=== PATIENT | male | born 1945 | race Caucasian/White ===

== ENCOUNTER 2017-03-04 21:20 | Observation (INO) | payer MEDICARE, OTHER ==
[2017-03-04] MEDS ORDERED: methylPREDNISolone Sod Succ/PF 125 MG/2 ML VIAL ONE (21:46)
[2017-03-04] MEDS ORDERED: Famotidine/PF 20 mg/2ml Vial ONE (21:46)
[2017-03-04] MEDS ORDERED: Acetaminophen 325 MG TAB PO PRN (23:11)
--- NOTE | 2017-03-04 23:52 | HP ---
PRIMARY CARE PHYSICIAN: Samuel Elaine MD CHIEF COMPLAINT: Tongue swelling. HISTORY OF PRESENT ILLNESS: Mr. Hoyt is a pleasant 71-year-old gentleman who was seen at [facility] on 03/04/2017. He has been taking lisinopril for at least 9 or 10 years. He also started taking Sudafed over the la st 3 days for recent sinus congestion. Today evening, he developed swelling of the tongue. His spee ch became muffled. He denies any shortness of breath. He denies any wheezing. He denies any chest pain. He went to [facility] emergency room. There, he was diagnosed with angioedema. He r eceived Solu-Medrol and Benadryl, and was transferred to this emergency room. At this emergency room , he received Solu-Medrol and famotidine. He reports feeling better. REVIEW OF SYSTEM: The following complete review of systems was negative, unless otherwise mentioned in the HPI or below: Constitutional: Weight loss or gain, sense of well-being, ability to conduct u sual activities, exercise tolerance. Skin/Breast: Rash, itching, changes in hair growth or loss, na il changes, breast lumps, tenderness, swelling, nipple discharge. Eyes: Vision, double vision, tear ing, blind spots, pain. ENT/Mouth: Headaches (location, time of onset, duration, precipitating fact ors), vertigo, lightheadedness, injury. Vision, double vision, tearing, blind spots, pain, nose blee ding, colds, obstruction, discharge, dental difficulties, gingival bleeding, dentures, neck stiffness , pain, tenderness, masses in thyroid or other areas. Cardiovascular: Precordial pain, substernal d istress, palpitations, syncope, dyspnea on exertion, orthopnea, nocturnal paroxysmal dyspnea, edema, cyanosis, hypertension, heart murmurs, varicosities, phlebitis, claudication. Respiratory: Pain, sh ortness of breath, wheezing, stridor, cough, hemoptysis, fever or night sweats. Gastrointestinal: P oor appetite, dysphagia, indigestion, abdominal pain, heartburn, eructation, nausea, vomiting, hemate mesis, jaundice, constipation, or diarrhea, abnormal stools (noa-colored, tarry, bloody, greasy, fou l smelling), flatulence, hemorrhoids, recent changes in bowel habits. Genitourinary: Urgency, frequ ency, dysuria, nocturia, hematuria, polyuria, oliguria, unusual (or change in) color of urine, stones , hesitancy, change in size of stream, dribbling, acute retention or incontinence, libido, potency. Musculoskeletal: Pain, swelling, redness or heat of muscles or joints, limitation of motion, muscula r weakness, atrophy, cramps. Neurologic/Psychiatric: Convulsions, paralyses, tremor, incoordination , parasthesias, difficulties with memory of speech, sensory or motor disturbances, or muscular coordi nation (ataxia, tremor), emotional problems, anxiety, depression, previous psychiatric care, unusual perceptions, hallucinations. Allergy/Immunologic: Skin rash, anemia, bleeding tendency, polydipsia, polyuria, intolerance to heat or cold. PAST MEDICAL HISTORY: Significant for dyslipidemia and hypertension. PAST SURGICAL HISTORY: Left great toe surgery. FAMILY HISTORY: No family history of premature coronary artery disease. SOCIAL HISTORY: The patient drinks one beer a day. He denies recreational drug use. He smokes 2 pa cks of cigarettes a day. ALLERGIES: PENICILLIN AND TETANUS IMMUNE GLOBULIN. CURRENT MEDICATIONS: Lisinopril 10 mg daily. PHYSICAL EXAMINATION: GENERAL: Mr. Hoyt is awake and alert, not in acute distress. VITAL SIGNS: Blood pressure is 141/81, pulse is 69, he is breathing at rate of 18, and saturating 97 % on room air. He is afebrile. EYES: No scleral icterus. No conjunctival pallor. ENT: He has tongue swelling. Base of the tongue is swollen as well. Airway is patent. NECK: Supple, nontender, trachea midline. RESPIRATORY: Accessory muscles of breathing are not active. Chest wall movements are symmetric bila terally. LUNGS: Clear to auscultation without wheeze, rhonchi, or crepitations. CARDIOVASCULAR: S1 and S2 are heard, regular. Peripheral pulses palpable. No carotid bruit, no per icardial rub. ABDOMEN: Soft, nontender, bowel sounds heard, no hepatomegaly, no splenomegaly. NEUROLOGIC: Cranial nerves II through XII are intact. Deep tendon reflexes are 2+. MUSCULOSKELETAL: Power is 5/5 in all 4 extremities. Normal range of movement at all major extremity joints. LYMPHATIC: No cervical lymphadenopathy. SKIN: No rashes or subcutaneous nodules. PSYCHIATRIC: Normal mood, normal affect, patient is oriented to person, place, and time. LABORATORY DATA: Mr. Hoyt's and investigations were reviewed. He had a 12-lead electrocardiogram , which showed normal sinus rhythm, no ST changes to suggest an acute coronary syndrome. Blood work done at [facility] the emergency room showed normal white count, elevated hemoglobin of 17, normal platelet count, normal electrolytes, normal creatinine and normal liver profile. ASSESSMENT AND PLAN: Mr. Hoyt is a pleasant 71-year-old gentleman who was seen at [facility] on 03/07/2017. His problem list includes: 1. Angioedema: Mr. Hoyt is presenting with angioedema. It is most likely from JOSE inhibitor. A CE inhibitor will be stopped. The patient has been advised not to use JOSE inhibitor or Sudafed in th e future. We will admit him to the hospital for observation. We will continue steroids, H1 and H2 b lockers. He is currently improving. If there is any worsening, we will move him to the critical car e unit. 2. Hypertension: Monitor vital signs, titrate antihypertensives as needed. 3. Tobacco use: The patient has been counseled regarding tobacco cessation. Many thanks for allowing me to participate in your patient's care. Please feel free to contact me wi th any questions or concerns. LEVEL OF RISK: Moderate. LEVEL OF COMPLEXITY: Moderate.
[2017-03-05 04:19] VITALS: BMI 33.1
[2017-03-05] MEDS: diphenhydrAMINE 50 MG/ML VIAL IVP SCH ×3 (04:26→11:37)
[2017-03-05] MEDS: Famotidine/PF 20 mg/2ml Vial SLOW IVP SCH ×3 (04:26→11:37)
[2017-03-05 05:50] LABS: #Basophils 0.2 thou/uL (0.0-0.2); #Lymphocytes 0.5 thou/uL (1.20-3.40); #Monocytes 0.2 thou/uL (0.11-0.59); #Neutrophils 10.6 thou/uL (1.40-6.50); %Eosinophils 0.1 % (0.0-10.0); %Lymphocytes 3.9 % (21.0-51.0); %Monocytes 1.6 % (0.0-10.0); Hematocrit 50.6 % (42.0-52.0); Mean Platelet Volume 6.5 fL (7.4-10.4); White Blood Cell (WBC) Count 11.5 thou/uL (4.8-10.8)
[2017-03-05 06:22] LABS: Anion Gap 12 mmol/L (10-20); BUN (Urea Nitrogen) 11 mg/dL (8.4-25.7); Calc. Creatinine Clearance 130 mL/min (70-130); Calcium 9.3 mg/dL (7.8-10.44); Carbon Dioxide 25 mmol/L (23-31); Chloride 102 mmol/L (98-107); Estimated GFR-MDRD Greater than 90
[2017-03-05] MEDS ORDERED: Sterile Water 10 ML ONE (11:30)
[2017-03-05 12:02] VITALS: BP 186/88; TEMP 97.3
--- NOTE | 2017-03-05 13:54 | DIS ---
DATE OF ADMISSION: 03/04/2017 DATE OF DISCHARGE: 03/05/2017 DISCHARGE DISPOSITION: Home. PRIMARY DISCHARGE DIAGNOSES: Angioedema, likely due to lisinopril versus Sudafed. SECONDARY DISCHARGE DIAGNOSES: Hypertension, dyslipidemia. PROCEDURES DONE DURING HOSPITALIZATION: H&H 16 and 50, platelet count 320, BUN 11, creatinine 0.8. DISCHARGE MEDICATIONS: Norvasc 10 mg p.o. daily, hydrochlorothiazide 12.5 mg p.o. daily, prednisone 10 mg twice daily, tapering dose over the course of 1 week, Pepcid 20 mg twice daily for 6 days, Franchesca dryl twice daily for 4 days. ALLERGIES: LISINOPRIL and PSEUDOEPHEDRINE. DISCHARGE PLAN: The patient to follow up with primary care physician in 1 week. BRIEF COURSE DURING HOSPITALIZATION: The patient initially came in with complaints of swelling of hi s tongue and speech becoming more muffled. He was also on lisinopril. In view of this, he was place d under observation for angioedema secondary to JOSE inhibitors versus Sudafed which he took for his s inus symptoms. He was on IV steroids along with Benadryl and Pepcid. He has done remarkably well du ring his brief stay here. He is eating well and his tongue swelling has completely resolved. He was placed on Norvasc and hydrochlorothiazide to be taken daily. The patient has been advised to check blood pressures daily and on record for a period of 10 days to follow up with primary care physician. He is otherwise hemodynamically stable and will be shortly discharged home. [facility].
--- NOTE | 2017-03-05 14:13 | PDOC.PN ---
- Subjective Encounter Start Date: 03/05/17 Encounter Start Time: 07:00 Subjective: feels better, tongue swelling is gone -: is able to eat -: has hoarness and pt says its due to post nasal drip from few days - Objective Resuscitation Status: Resuscitation Status FULL:Full Resuscitation MAR Reviewed: Yes Vital Signs & Weight: Vital Signs (12 hours) Temp Pulse Resp BP BP Pulse Ox 03/05/17 11:34 97.3 F L 74 20 186/88 H 95 03/05/17 08:40 61 20 132/67 98 03/05/17 08:00 97.3 F L 74 20 03/05/17 07:34 97.8 F 67 20 159/81 H 95 03/05/17 04:23 97.5 F L 61 20 03/05/17 02:40 97.5 F L 61 20 127/59 L 94 L Weight Weight 237 lb 14.4 oz I&O: 03/04/17 03/05/17 03/06/17 06:59 06:59 06:59 Intake Total 110 Balance 110 Result Diagrams: 03/05/17 05:14 03/05/17 05:14 Phys Exam - Physical Examination HEENT: PERRLA, moist MMs Neck: no JVD, supple Respiratory: no wheezing, no rales Cardiovascular: RRR, no significant murmur Gastrointestinal: soft, non-tender, positive bowel sounds Musculoskeletal: no edema, pulses present Neurological: non-focal, moves all 4 limbs Psychiatric: A&O x 3 Dx/Plan (1) Angioedema Code(s): T78.3XXA - ANGIONEUROTIC EDEMA, INITIAL ENCOUNTER Status: Acute Comment: resolving (2) HTN (hypertension) Code(s): I10 - ESSENTIAL (PRIMARY) HYPERTENSION Status: Chronic Qualifiers: Hypertension type: essential hypertension Qualified Code(s): I10 - Essential (primary) hypertension (3) Obesity (BMI 30.0-34.9) Code(s): E66.9 - OBESITY, UNSPECIFIED Status: Chronic - Plan hemostable -: dc pt home -: will add norvasc and hctz for htn * .
--- NOTE | 2017-03-13 10:00 | EKG ---
Test Reason : Blood Pressure : / mmHG Vent. Rate : 071 BPM Atrial Rate : 071 BPM P-R Int : 180 ms QRS Dur : 090 ms QT Int : 378 ms P-R-T Axes : 049 005 046 degrees QTc Int : 410 ms Normal sinus rhythm Normal ECG Confirmed by YESSENIA IGLESIAS, GHULAM Burger ([id number]), marketing editor ABNER CASANOVA ([id number]) on 03/13/2017 10:00:14 AM Referred By: Confirmed By:GHULAM CASAS MD
== END 2017-03-05 14:05 | disposition home or self-care (01) ==
LOC: ERS 21:20 → 2SW 23:16
PROVIDERS: ADMIT Internal Medicine; ATTEND Internal Medicine
DX: T78.3XXA Angioneurotic edema, initial encounter (principal); I10 Essential (primary) hypertension; E78.5 Hyperlipidemia, unspecified; F17.210 Nicotine dependence, cigarettes, uncomplicated; Z88.8 Allergy status to other drugs, medicaments and biological substances; Z88.0 Allergy status to penicillin; Z88.7 Allergy status to serum and vaccine; Z79.899 Other long term (current) drug therapy; Z98.890 Other specified postprocedural states
CPT/HCPCS: 80048; 85025; 93005; 96374; 96375 ×2; 96376; 99285; 99406; G0378; 36415; A4216; J1200; J2920; J2930; S0028

== ENCOUNTER 2017-06-12 07:35 | Inpatient (IN) | payer MEDICARE ==
[2017-06-12] MEDS ORDERED: Water For Inject, Bacteriostat 30 ML ONE (07:54)
[2017-06-12] MEDS ORDERED: Famotidine/PF 20 mg/2ml Vial ONE (07:54)
[2017-06-12] MEDS ORDERED: EPINEPHrine 1 MG/ML AMP ONE (07:54)
[2017-06-12] MEDS ORDERED: methylPREDNISolone Sod Succ/PF 125 MG/2 ML VIAL ONE (07:54)
[2017-06-12] MEDS ORDERED: diphenhydrAMINE 50 MG/ML VIAL ONE (07:54)
--- NOTE | 2017-06-12 19:15 | PDOC.EVN ---
Event Note - Event Note Event Note: RN called - Patient was discharged earlier by Dr Tilley. Scripts of Prednisone were sent to the pharmacy - Pharmacy however is closed. Plan: New script sent to [facility].
== END 2017-06-12 19:25 | disposition home or self-care (01) | DRG 916 ==
LOC: ERS 07:35 → ERHOLD 10:55
PROVIDERS: ADMIT Internal Medicine; ATTEND Internal Medicine
DX: Z88.0 Allergy status to penicillin; F17.210 Nicotine dependence, cigarettes, uncomplicated; Z88.7 Allergy status to serum and vaccine; I10 Essential (primary) hypertension; Z79.899 Other long term (current) drug therapy; T78.3XXA Angioneurotic edema, initial encounter; T36.3X5A Adverse effect of macrolides, initial encounter; Z88.8 Allergy status to other drugs, medicaments and biological substances
CPT/HCPCS: 96372; 96374; 96375; J0171; J1200; J2930; S0028

== ENCOUNTER 2023-09-29 10:45 | Inpatient (IN) | payer MEDICARE, OTHER ==
[2023-09-29] MEDS ORDERED: Acetaminophen 500 MG TAB ONE (11:24)
[2023-09-29 11:37] LABS: #Basophils 0.04 10x3/uL (0.0-0.2); %Basophils 0.3 % (0.0-1.0); %Eosinophils 1.5 % (0.0-10.0); %Monocytes 10.3 % (0.0-10.0); %Neutrophils 82.5 % (42.0-75.0); Hemoglobin 13.1 g/dL (14.0-18.0); Mean Corpuscular HGB CONC 33.6 g/dL (32.0-36.0); Mean Corpuscular Hemoglobin 30.7 pg (27.0-31.0); Mean Corpuscular Volume 91.3 fL (78.0-98.0); Mean Platelet Volume 8.8 fL (7.4-10.4); Platelet Count 336 10x3/uL (130-400); RBC Distribution Width 13.2 % (11.5-14.5); Red Blood Cell (RBC) Count 4.27 mill/uL (4.70-6.10)
[2023-09-29 12:44] LABS: ALT (SGPT) 12 U/L (8-55); AST (SGOT) 22 U/L (5-34); Alkaline Phosphatase 101 U/L (40-110); Anion Gap 15 mmol/L (10-20); BUN (Urea Nitrogen) 13 mg/dL (8.4-25.7); Calc. Creatinine Clearance 0 mL/min (70-130); Calcium 12.1 mg/dL (7.8-10.44); Carbon Dioxide 30 mmol/L (23-31); Chloride 96 mmol/L (98-107); Estimated GFR 93; Glucose 98 mg/dL (83-110); Potassium 3.1 mmol/L (3.5-5.1); Sodium 138 mmol/L (136-145)
[2023-09-29 14:10] LABS: Magnesium 2.2 mg/dL (1.6-2.6)
[2023-09-29 14:21] LABS: Anion Gap 14 mmol/L (10-20); BUN (Urea Nitrogen) 13 mg/dL (8.4-25.7); Calc. Creatinine Clearance 0 mL/min (70-130); Calcium 12.1 mg/dL (7.8-10.44); Carbon Dioxide 29 mmol/L (23-31); Chloride 97 mmol/L (98-107); Estimated GFR 94; Glucose 93 mg/dL (83-110); Potassium 3.3 mmol/L (3.5-5.1); Sodium 137 mmol/L (136-145)
[2023-09-29] MEDS ORDERED: Potassium Chloride 20 MEQ TAB ONE ×2 (15:10→18:41)
[2023-09-29] MEDS ORDERED: Ondansetron PF 4 MG/2 ML Vial IVP PRN (15:37)
[2023-09-29] MEDS ORDERED: Ondansetron ODT 4 MG TAB PO PRN (15:37)
[2023-09-29] MEDS: Polyethylene Glycol 3350 17 GM Packet PO SCH (16:25)
[2023-09-29] MEDS: Sodium Chloride 0.9% 1,000 ML IV SCH (17:09)
[2023-09-29] MEDS: Acetaminophen 325 MG TAB PO SCH (18:06)
[2023-09-29 18:25] LABS: Bacteria/HPF None Seen HPF (None Seen); CAUTI Indications for Culture Alt mental st,lethar; RBC/HPF 0-3 HPF (0-3); Squamous Epithelial None Seen HPF (0-3); WBC/HPF 0-3 HPF (0-3)
[2023-09-29 18:31] LABS: Bilirubin Negative (Negative); Blood, Urine Negative (Negative); Clarity Clear (Clear); Glucose, Urine (Dipstick) Negative (Negative); Ketone, Urine 15 mg/dL (Negative); Leukocyte Negative (Negative); Nitrite Negative (Negative); Protein, Urine (Dipstick) Negative (Neg-Trace); Urobilinogen 0.2 mg/dL (Less than 2); pH, Urine 6.5 (5.0-9.0)
[2023-09-29 18:34] LABS: Urine Culture Reflex No No
[2023-09-29] MEDS ORDERED: Famotidine 20 MG TAB ONE (22:07)
[2023-09-29] MEDS ORDERED: Sodium Chloride 0.9% 100 ML ONE (22:07)
[2023-09-29] MEDS ORDERED: cefTRIAXone (ROCEPHIN) 1 GM VIAL ONE (22:07)
[2023-09-29] MEDS: cefTRIAXone\\ROCEPHIN 1 GM in Sodium Chloride 0.9% 100 ML IVPB SCH (22:13)
[2023-09-29] MEDS: Famotidine 20 MG TAB PO SCH (22:13)
[2023-09-29] MEDS: Docusate 100 MG CAP PO SCH (22:20)
[2023-09-29] MEDS ORDERED: Acetaminophen 325 MG TAB ONE (22:48)
[2023-09-29 23:21] LABS: Potassium 3.3 mmol/L (3.5-5.1)
[2023-09-29 23:36] VITALS: BMI 24.7
[2023-09-30] MEDS: Potassium Chloride 20 MEQ TAB PO SCH ×2 (01:29→09:16)
[2023-09-30] MEDS: metroNIDAZOLE 500 MG in Premix 1 BAG IVPB SCH (01:30)
[2023-09-30 02:39] LABS: Strep pneumo Urine Ag NEGATIVE (NEGATIVE)
[2023-09-30] MEDS ORDERED: Electrolyte Replacement Protocol 1 EACH FS SCH (04:45)
[2023-09-30 06:17] LABS: #Basophils 0.07 10x3/uL (0.0-0.2); %Basophils 0.6 % (0.0-1.0); %Eosinophils 4.3 % (0.0-10.0); %Lymphocytes 8.1 % (21.0-51.0); %Monocytes 12.2 % (0.0-10.0); %Neutrophils 74.4 % (42.0-75.0); Hematocrit 39.3 % (42.0-52.0); Mean Corpuscular HGB CONC 33.1 g/dL (32.0-36.0); Mean Corpuscular Hemoglobin 29.5 pg (27.0-31.0); Mean Corpuscular Volume 89.3 fL (78.0-98.0); Mean Platelet Volume 8.8 fL (7.4-10.4); Platelet Count 312 10x3/uL (130-400); RBC Distribution Width 13.2 % (11.5-14.5)
[2023-09-30 06:36] LABS: ALT (SGPT) 10 U/L (8-55); AST (SGOT) 18 U/L (5-34); Albumin 2.6 g/dL (3.4-4.8); Alkaline Phosphatase 89 U/L (40-110); Anion Gap 13 mmol/L (10-20); BUN (Urea Nitrogen) 12 mg/dL (8.4-25.7); Bilirubin, Total 0.7 mg/dL (0.2-1.2); Calc. Creatinine Clearance 108 mL/min (70-130); Calcium 11.2 mg/dL (7.8-10.44); Carbon Dioxide 28 mmol/L (23-31); Chloride 102 mmol/L (98-107); Estimated GFR 97; Globulin 3.4 g/dL (2.4-3.5); Glucose 78 mg/dL (83-110); Magnesium 2.1 mg/dL (1.6-2.6); Potassium 2.8 mmol/L (3.5-5.1); Sodium 140 mmol/L (136-145)
[2023-09-30] MEDS: Enoxaparin 40 MG (0.4 mL) SYRINGE SC SCH (09:14)
[2023-09-30] MEDS: PHOS-NAK 1 PKT PACK PO SCH (09:15)
[2023-09-30] MEDS: Polyethylene Glycol 3350 17 GM Packet PO SCH (09:15)
[2023-09-30] MEDS: Nicotine 21 MG PATCH TD SCH (09:15)
[2023-09-30] MEDS: Amlodipine 10 MG TAB PO SCH (09:17)
[2023-09-30 11:23] LABS: Reference Lab Name LABCORP
[2023-09-30] MEDS: Sodium Chloride 0.9% 1,000 ML IV SCH (17:56)
[2023-09-30] MEDS: Zoledronic Acid 4 MG in Sodium Chloride 0.9% 100 ML IVPB SCH (17:56)
[2023-10-01 06:35] LABS: #Basophils 0.04 10x3/uL (0.0-0.2); %Basophils 0.4 % (0.0-1.0); %Eosinophils 3.1 % (0.0-10.0); %Lymphocytes 5.7 % (21.0-51.0); %Monocytes 7.9 % (0.0-10.0); %Neutrophils 82.5 % (42.0-75.0); Hemoglobin 13.3 g/dL (14.0-18.0); Mean Corpuscular HGB CONC 33.3 g/dL (32.0-36.0); Mean Corpuscular Hemoglobin 30.5 pg (27.0-31.0); Mean Corpuscular Volume 91.7 fL (78.0-98.0); Mean Platelet Volume 9.3 fL (7.4-10.4); Platelet Count 337 10x3/uL (130-400); RBC Distribution Width 13.2 % (11.5-14.5); Red Blood Cell (RBC) Count 4.36 mill/uL (4.70-6.10)
[2023-10-01 07:32] LABS: Anion Gap 15 mmol/L (10-20); BUN (Urea Nitrogen) 8 mg/dL (8.4-25.7); Calc. Creatinine Clearance 108 mL/min (70-130); Calcium 10.8 mg/dL (7.8-10.44); Carbon Dioxide 28 mmol/L (23-31); Chloride 103 mmol/L (98-107); Estimated GFR 97; Glucose 73 mg/dL (83-110); Potassium 2.6 mmol/L (3.5-5.1); Sodium 143 mmol/L (136-145)
[2023-10-01] MEDS ORDERED: Potassium Chloride 20 MEQ TAB PO SCH (10:00)
[2023-10-01] MEDS ORDERED: Ipratropium/Albuterol 3 ML NEB NEB PRN (15:57)
[2023-10-01 16:18] LABS: Phosphorus 1.9 mg/dL (2.3-4.7)
[2023-10-01 17:01] LABS: Potassium 3.1 mmol/L (3.5-5.1)
[2023-10-01 19:36] LABS: Potassium 3.1 mmol/L (3.5-5.1); Sodium 137 mmol/L (136-145)
[2023-10-01] MEDS: Potassium Chloride 20 MEQ TAB PO SCH ×2 (21:56→22:10)
[2023-10-01] MEDS: PHOS-NAK 1 PKT PACK PO SCH (22:10)
[2023-10-02 04:38] LABS: #Basophils 0.07 10x3/uL (0.0-0.2); %Basophils 0.8 % (0.0-1.0); %Eosinophils 2.4 % (0.0-10.0); %Lymphocytes 7.2 % (21.0-51.0); %Monocytes 8.7 % (0.0-10.0); %Neutrophils 80.6 % (42.0-75.0); Hematocrit 40.8 % (42.0-52.0); Hemoglobin 13.2 g/dL (14.0-18.0); Mean Corpuscular HGB CONC 32.4 g/dL (32.0-36.0); Mean Corpuscular Hemoglobin 28.9 pg (27.0-31.0); Mean Corpuscular Volume 89.5 fL (78.0-98.0); Mean Platelet Volume 9.4 fL (7.4-10.4); Platelet Count 277 10x3/uL (130-400); RBC Distribution Width 13.4 % (11.5-14.5); Red Blood Cell (RBC) Count 4.56 mill/uL (4.70-6.10)
[2023-10-02 04:56] LABS: Anion Gap 10 mmol/L (10-20); BUN (Urea Nitrogen) 10 mg/dL (8.4-25.7); Calc. Creatinine Clearance 106 mL/min (70-130); Calcium 9.6 mg/dL (7.8-10.44); Carbon Dioxide 23 mmol/L (23-31); Chloride 106 mmol/L (98-107); Estimated GFR 96; Glucose 84 mg/dL (83-110); Potassium 3.3 mmol/L (3.5-5.1); Sodium 136 mmol/L (136-145)
[2023-10-02 07:02] LABS: Phosphorus 1.8 mg/dL (2.3-4.7)
[2023-10-02] MEDS ORDERED: Potassium Chloride 20 MEQ TAB PO SCH (07:45)
[2023-10-02] MEDS ORDERED: PHOS-NAK 1 PKT PACK PO SCH (08:00)
[2023-10-02] MEDS: Potassium Phosphate 30 MMOL in Sodium Chloride 0.9% 250 ML 250 ML IVPB SCH (09:46)
[2023-10-02] MEDS: Potassium Chloride 20 MEQ TAB PO SCH (09:47)
[2023-10-02 12:29] LABS: Potassium 3.5 mmol/L (3.5-5.1)
[2023-10-02] MEDS: Senokot S 8.6-50 MG TAB PO SCH ×2 (13:26→21:13)
[2023-10-02] MEDS: traMADol HCl 50 MG TAB PO PRN (21:13)
[2023-10-03 02:12] LABS: QuantiFERON-TB Gold Plus Negative (Negative)
[2023-10-03 05:16] LABS: #Basophils 0.03 10x3/uL (0.0-0.2); %Basophils 0.2 % (0.0-1.0); %Eosinophils 2.5 % (0.0-10.0); %Monocytes 10.3 % (0.0-10.0); %Neutrophils 79.6 % (42.0-75.0); Hematocrit 37.4 % (42.0-52.0); Hemoglobin 12.2 g/dL (14.0-18.0); Mean Corpuscular HGB CONC 32.6 g/dL (32.0-36.0); Mean Corpuscular Hemoglobin 28.9 pg (27.0-31.0); Mean Corpuscular Volume 88.6 fL (78.0-98.0); Mean Platelet Volume 9.3 fL (7.4-10.4); Platelet Count 272 10x3/uL (130-400); RBC Distribution Width 13.7 % (11.5-14.5); Red Blood Cell (RBC) Count 4.22 mill/uL (4.70-6.10)
[2023-10-03 05:31] LABS: Anion Gap 8 mmol/L (10-20); BUN (Urea Nitrogen) 10 mg/dL (8.4-25.7); Calc. Creatinine Clearance 130 mL/min (70-130); Calcium 8.6 mg/dL (7.8-10.44); Carbon Dioxide 24 mmol/L (23-31); Chloride 107 mmol/L (98-107); Estimated GFR 102; Glucose 87 mg/dL (83-110); Potassium 3.1 mmol/L (3.5-5.1); Sodium 136 mmol/L (136-145)
[2023-10-03 05:32] LABS: Phosphorus 1.8 mg/dL (2.3-4.7)
[2023-10-03] MEDS: Magnesium 2 GM/50 ML(in water) 2 GM in Premix 1 BAG IVPB SCH (10:19)
[2023-10-03] MEDS: Aspirin 325 MG TAB PO PRN (10:23)
[2023-10-03] MEDS: Potassium Chloride 20 MEQ TAB PO SCH (10:23)
[2023-10-03] MEDS: PHOS-NAK 1 PKT PACK PO SCH (10:24)
[2023-10-03] MEDS: Potassium Phosphate 30 MMOL in Sodium Chloride 0.9% 250 ML 250 ML IVPB SCH ×2 (10:32→11:21)
[2023-10-03 13:35] LABS: Potassium 3.9 mmol/L (3.5-5.1)
[2023-10-03] MEDS: Milk Of Magnesia 30 ML UDCUP PO SCH ×2 (17:51)
[2023-10-04 04:52] LABS: #Basophils 0.04 10x3/uL (0.0-0.2); %Basophils 0.3 % (0.0-1.0); %Eosinophils 2.3 % (0.0-10.0); %Lymphocytes 8.7 % (21.0-51.0); %Monocytes 12.1 % (0.0-10.0); %Neutrophils 76.2 % (42.0-75.0); Hematocrit 37.3 % (42.0-52.0); Hemoglobin 12.1 g/dL (14.0-18.0); Mean Corpuscular HGB CONC 32.4 g/dL (32.0-36.0); Mean Corpuscular Hemoglobin 30.3 pg (27.0-31.0); Mean Corpuscular Volume 93.3 fL (78.0-98.0); Platelet Count 273 10x3/uL (130-400); RBC Distribution Width 13.7 % (11.5-14.5)
[2023-10-04 05:07] LABS: Phosphorus 1.7 mg/dL (2.3-4.7)
[2023-10-04 05:11] LABS: Anion Gap 12 mmol/L (10-20); BUN (Urea Nitrogen) 9 mg/dL (8.4-25.7); Calc. Creatinine Clearance 135 mL/min (70-130); Calcium 8.1 mg/dL (7.8-10.44); Carbon Dioxide 21 mmol/L (23-31); Chloride 107 mmol/L (98-107); Estimated GFR 103; Glucose 89 mg/dL (83-110); Magnesium 2.3 mg/dL (1.6-2.6); Potassium 3.7 mmol/L (3.5-5.1); Sodium 136 mmol/L (136-145)
[2023-10-04] MEDS: Potassium Phosphate 30 MMOL in Sodium Chloride 0.9% 250 ML 250 ML IVPB SCH (09:34)
[2023-10-04] MEDS: PHOS-NAK 1 PKT PACK PO SCH (09:34)
[2023-10-04] MEDS: Bisacodyl 10 MG SUPP PR SCH (11:36)
[2023-10-04] MEDS: Magnesium Citrate 300 ML BOT PO SCH (11:40)
[2023-10-04] MEDS ORDERED: Glycerin Pediatric Sup. (4ml) PR PRN (12:51)
[2023-10-04] MEDS: Lidocaine 4% Patch TD SCH (13:56)
[2023-10-05] MEDS: Transdermal Patch Removal TOP SCH (00:38)
[2023-10-05 05:29] LABS: #Basophils 0.03 10x3/uL (0.0-0.2); %Basophils 0.2 % (0.0-1.0); %Eosinophils 2.2 % (0.0-10.0); %Monocytes 14.1 % (0.0-10.0); Hematocrit 36.8 % (42.0-52.0); Hemoglobin 12.4 g/dL (14.0-18.0); Mean Corpuscular HGB CONC 33.7 g/dL (32.0-36.0); Mean Corpuscular Hemoglobin 29.6 pg (27.0-31.0); Mean Corpuscular Volume 87.8 fL (78.0-98.0); Mean Platelet Volume 9.3 fL (7.4-10.4); Platelet Count 293 10x3/uL (130-400); RBC Distribution Width 13.6 % (11.5-14.5); Red Blood Cell (RBC) Count 4.19 mill/uL (4.70-6.10)
[2023-10-05 11:19] LABS: Histoplasma Antigen - Urine Negative (<0.2 ng/mL)
[2023-10-05 11:49] VITALS: BMI 24.8
[2023-10-05] MEDS ORDERED: Transdermal Patch Removal TOP PRN (20:31)
[2023-10-05] MEDS: Lidocaine 4% Patch TD PRN (22:34)
[2023-10-06 04:55] LABS: #Basophils 0.03 10x3/uL (0.0-0.2); %Basophils 0.3 % (0.0-1.0); %Eosinophils 2.8 % (0.0-10.0); %Lymphocytes 9.7 % (21.0-51.0); %Monocytes 16.1 % (0.0-10.0); %Neutrophils 70.7 % (42.0-75.0); Hematocrit 37.6 % (42.0-52.0); Hemoglobin 12.5 g/dL (14.0-18.0); Mean Corpuscular HGB CONC 33.2 g/dL (32.0-36.0); Mean Corpuscular Hemoglobin 30.2 pg (27.0-31.0); Mean Corpuscular Volume 90.8 fL (78.0-98.0); Mean Platelet Volume 9.2 fL (7.4-10.4); Platelet Count 302 10x3/uL (130-400); RBC Distribution Width 13.7 % (11.5-14.5); Red Blood Cell (RBC) Count 4.14 mill/uL (4.70-6.10)
[2023-10-06] MEDS: Lidocaine 4% Patch TD SCH (15:33)
[2023-10-06] MEDS: Transdermal Patch Removal TOP SCH (21:16)
[2023-10-07 05:49] LABS: #Basophils 0.06 10x3/uL (0.0-0.2); %Basophils 0.5 % (0.0-1.0); %Eosinophils 3.5 % (0.0-10.0); %Lymphocytes 9.5 % (21.0-51.0); %Monocytes 17.1 % (0.0-10.0); %Neutrophils 68.8 % (42.0-75.0); Hematocrit 39.8 % (42.0-52.0); Mean Corpuscular HGB CONC 32.7 g/dL (32.0-36.0); Mean Corpuscular Hemoglobin 30.4 pg (27.0-31.0); Platelet Count 290 10x3/uL (130-400); RBC Distribution Width 13.7 % (11.5-14.5); Red Blood Cell (RBC) Count 4.28 mill/uL (4.70-6.10)
[2023-10-07 05:55] LABS: INR-International Normal Ratio 1.1; Prothrombin Time 13.7 sec (12.0-14.7)
[2023-10-07 05:56] LABS: PTT 37.4 sec (22.9-36.1)
[2023-10-07] MEDS ORDERED: Lidocaine 1% PF 5 ML VIAL ONE (10:22)
[2023-10-07] MEDS ORDERED: fentaNYL 50 mcg/mL 1 mL Vial ONE (10:23)
[2023-10-07] MEDS ORDERED: Magnevist 469MG/ML 20 ML VIAL ONE (11:19)
[2023-10-07] MEDS: Lidocaine 4% Patch TD SCH (11:32)
[2023-10-07] MEDS: Atorvastatin Calcium 40 MG TAB PO SCH (20:20)
[2023-10-08 05:09] LABS: Cardiac Risk 3.7 (Less than 4.5); Cholesterol 92 mg/dl (< 200 Desired); HDL Cholesterol 25 mg/dL (>60 Neg Risk); LDL Cholesterol, Calculated 51 mg/dL; Magnesium 1.9 mg/dL (1.6-2.6); Phosphorus 1.6 mg/dL (2.3-4.7); Triglycerides 79 mg/dL (Less than 150)
[2023-10-08] MEDS ORDERED: Magnesium 2 GM/50 ML(in water) 2 GM in Premix 1 BAG IVPB SCH (07:45)
[2023-10-08] MEDS: PHOS-NAK 1 PKT PACK PO SCH (09:48)
[2023-10-08] MEDS: Aspirin 81 mg Enteric Coated Tablet PO SCH (09:49)
[2023-10-08] MEDS: Magnesium 2 GM/50 ML(in water) 2 GM in Premix 1 BAG IVPB SCH (09:49)
[2023-10-08] MEDS: Magnesium Chloride 64 MG TAB PO SCH (09:50)
[2023-10-08 10:14] VITALS: BP 110/58; TEMP 97.9
== END 2023-10-08 13:00 | disposition home or self-care (01) | DRG 180 ==
LOC: ERS 10:45 → ERHOLD 15:37 → 2NO 23:08 → OBSVTOIN 09-30 15:13
PROVIDERS: ADMIT Internal Medicine; ATTEND Family Medicine
PROC: 0BBC3ZX Excision of Right Upper Lung Lobe, Percutaneous Approach, Diagnostic (ICD-10-PCS; principal; 2023-10-07)
PROC: 3E033XZ Introduction of Vasopressor into Peripheral Vein, Percutaneous Approach (ICD-10-PCS; 2023-10-07)
DX: C34.11 Malignant neoplasm of upper lobe, right bronchus or lung (principal); I63.9 Cerebral infarction, unspecified; R91.8 Other nonspecific abnormal finding of lung field; E78.5 Hyperlipidemia, unspecified; J44.9 Chronic obstructive pulmonary disease, unspecified; I25.10 Atherosclerotic heart disease of native coronary artery without angina pectoris; K59.01 Slow transit constipation; G47.33 Obstructive sleep apnea (adult) (pediatric); F17.210 Nicotine dependence, cigarettes, uncomplicated; D72.829 Elevated white blood cell count, unspecified; E87.6 Hypokalemia; E83.52 Hypercalcemia; Z88.8 Allergy status to other drugs, medicaments and biological substances; Z79.899 Other long term (current) drug therapy; Z71.6 Tobacco abuse counseling; Z98.890 Other specified postprocedural states
CPT/HCPCS: 32408; 36415; 70553; 71045; 71046; 71260; 74018; 74177; 76377; 77012; 80048; 80053; 80061; 81001; 82306; 83735; 83970; 84100; 84145; 84443; 85025; 85610; 85730; 86480; 87070; 87081; 87116; 87205; 87206; 87385; 87449; 88305; 88333; 88334; 88341; 88342; 93005; 93010; 96360; 96361; 96372; 96375; 96376; A9579; G0378; J0696; J1650; J3010; J3475; J3489; J3490; J7050